=== PATIENT | male | born 1965 | race Caucasian/White ===

== ENCOUNTER 2017-08-22 08:30 | Emergency (ER) | payer BC ==
[2017-08-22 08:51] VITALS: BMI 32.5
[2017-08-22 09:10] LABS: BASOPHILS # (AUTO) 0.1 X10^3/uL (0.0-0.1); BASOPHILS % (AUTO) 0.9 % (0.2-1.0); EOSINOPHILS # (AUTO) 0.1 x10^3/uL (0.0-0.2); EOSINOPHILS % (AUTO) 1.6 % (0.9-2.9); HEMATOCRIT 45.3 % (42.0-54.0); HEMOGLOBIN 14.6 g/dL (13.5-18.0); LYMPHOCYTES # (AUTO) 1.3 X10^3/uL (1.3-2.9); LYMPHOCYTES % (AUTO) 17.6 % (21.0-51.0); MEAN CORPUSCULAR HEMOGLOBIN 21.8 pg (27.0-34.0); MEAN CORPUSCULAR HGB CONC 32.2 g/dL (33.0-35.0); MEAN CORPUSCULAR VOLUME 67.7 fL (80.0-100.0); MEAN PLATELET VOLUME 9.3 fL (7.4-11.0); MONOCYTES # (AUTO) 0.7 x10^3/uL (0.3-0.8); MONOCYTES % (AUTO) 9.9 % (0.0-13.0); NEUTROPHILS # (AUTO) 5.2 x10^3/uL (2.2-4.8); PLATELET COUNT 80 X10^3/uL (150.0-450.0); RED CELL DISTRIBUTION WIDTH 19.6 % (11.6-16.5); WHITE BLOOD COUNT 7.4 X10^3/uL (3.6-10.0)
--- NOTE | 2017-08-22 09:11 | DR.AMS ---
HPI - Time Seen Time seen: 08:45 (seen on arrival to ER) - PCP Primary Care Physician: lilia vance - HPI Comment HPI Comment: spouse notes pt 'takes lots of sudafed and mucinex' - Complaint Cheif Complaint Doctors Comments: Pt 'clutched his chest, started gurgling, eyes rolled back in head'. Brief syncopal episode. No cxp now, 'feels tired' Chief Complaint:: HE FELL BACK IN THE CHAIR AND GRABBED HIS CHEST AND WAS GURGLING Self Treatment fo Chief Complaint: PT ALSO HAS BEEN COUGHING PRODUCTIVE CLEAR AND WHITE - Reviewed Nurses Notes Reviewed: Yes - Source History Provided: Patient, Family Member - Mode of Arrival Mode of Arrival: Wheelchair - Timing Onset of Chief Complaint: 08/22/17 Came On: Suddenly Symptoms: Improving Symptom Onset: Known - Quality Quality: Decreased Alertness - Severity Severity: Moderate - Associated Signs and Symptoms Associated Signs and Symptoms: None, Chest Pain, Other ('feels tired', denies cxp, SOB at present. Pt describes himself as borderline diabetic) PMH - PMH Past Medical History: No ('borderline diabetic') Past Surgical History: Yes (nl cardiac cath 2 yrs ago) Past Surgical History Comment: HEART CATH 2 YRS AGO THAT WAS CLEAR - Family History History of Family Medical Conditions: Yes Family Medical History: Cancer Family Medical History Comment: AFIB - Social History Does patient currently use any type of tobacco product: Yes Type of Tobacco Use: Cigarettes Alcohol Use: Occasionally Do you use any recreational Drugs:: No Lives With: Spouse Lives Where: Home - infectious screening In the last 2 months have you had wt loss of >10#?: NO Have you had fever, night sweats or hemotysis?: No Have you traveled outside the country in the last 6 months?: No Isolation: Standard ROS - Review of Systems Constitutional: Other (fees tired) Eyes: No Symptoms Reported ENTM: No Symptoms Reported Respiratoy: Non-Productive Cough Cardiovascular: Other (cxp earlier but gone now) Gastrointestinal/Abdominal: No Symptoms Reported Genitourinary: No Symptoms Reported Neurological: Other (pt with syncope vs near-syncope at home just [employer]. No incontinence. AAOx3 on arrival here) Musculoskeletal: No Symptoms Reported Integumentary: No Symptoms Reported Psychiatric: No Symptoms Reported All Other Systems: Reviewed and Negative PE - Vitals Vital Signs: Pulse Pulse Resp BP BP Pulse Ox 08/22/17 11:03 78 14 125/79 95 08/22/17 10:25 82 21 128/73 100 08/22/17 08:42 77 14 144/68 98 - General Limitations: No Limitations General Appearance: Alert, In No Apparent Distress - Head Head Exam: Normal Inspection, Atraumatic, Normocephalic - Eyes Eye exam: Normal Appearance, PERRL, EOMI. negative: Nystagmus, Miosis, Mydrasis Pupils: Regular, Round: Bilateral, Reactive: Bilateral - ENT ENT Exam: Normal Exam Nose Exam: Normal Nose Exam Mouth Exam: Normal Inspection Throat Exam: Normal Inspection - Neck Neck Exam: Normal Inspection - Chest Chest Inspection: Normal Inspection - Respiratory Respiratory Exam: Normal Lung Sounds Bilat Respiratory Exam: Bilateral Clear to Auscultation - Cardiovascular Cardiovascular Exam: Regular Rate, Normal Rhythm - Abdominal Exam Abdominal Exam: Normal Inspection, Normal Bowel Sounds, Soft - Extremities Extremities Exam: Normal Inspection - Back Back Exam: Normal Inspection, Full ROM - Neurological Neurological Exam: Alert, Oriented X3, Normal Gait, Reflexes Normal Patient Oriented To: Person, Place, Time Speech: Fluid Speech. negative: Receptive Aphasia, Expressive Aphasia Cranial Nerve Exam: EOM Function (II, III, IV, ): Normal, Facial Sensation (V) : Normal, Facial Palsy (VII): Normal, Tongue Deviation: Normal Cerebellar Function: Finger to Nose: Normal Cerebellar Function: Normal Gait Motor Strength - LUE: 5/5 Motor Strength - RUE: 5/5 Motor Strength - LLE: 5/5 Motor Strength - RLE: 5/5 - Psychological Psychiatric Exam: Normal Affect, Normal Mood - Skin Skin Exam: Warm, Dry ROR - Labs Reviewed Laboratory Results Reviewed?: Yes Result Diagrams: 08/22/17 08:46 08/22/17 08:46 Laboratory: WBC 7.4 X10^3/uL (3.6-10.0) 08/22/17 08:46 RBC 6.70 X10^6/uL (4.7-6.0) H 08/22/17 08:46 Hgb 14.6 g/dL (13.5-18.0) 08/22/17 08:46 Hct 45.3 % (42.0-54.0) 08/22/17 08:46 MCV 67.7 fL (80.0-100.0) L 08/22/17 08:46 MCH 21.8 pg (27.0-34.0) L 08/22/17 08:46 MCHC 32.2 g/dL (33.0-35.0) L 08/22/17 08:46 RDW 19.6 % (11.6-16.5) H 08/22/17 08:46 Plt Count 80 X10^3/uL (150.0-450.0) L 08/22/17 08:46 Plt Count Comment Decreased (ADEQUATE) 08/22/17 08:46 MPV 9.3 fL (7.4-11.0) 08/22/17 08:46 Neut % (Auto) 70.0 % (42.0-75.0) 08/22/17 08:46 Lymph % (Auto) 17.6 % (21.0-51.0) L 08/22/17 08:46 Riley % (Auto) 9.9 % (0.0-13.0) 08/22/17 08:46 Eos % (Auto) 1.6 % (0.9-2.9) 08/22/17 08:46 Baso % (Auto) 0.9 % (0.2-1.0) 08/22/17 08:46 Neut # (Auto) 5.2 x10^3/uL (2.2-4.8) H 08/22/17 08:46 Lymph # (Auto) 1.3 X10^3/uL (1.3-2.9) 08/22/17 08:46 Riley # (Auto) 0.7 x10^3/uL (0.3-0.8) 08/22/17 08:46 Eos # (Auto) 0.1 x10^3/uL (0.0-0.2) 08/22/17 08:46 Baso # (Auto) 0.1 X10^3/uL (0.0-0.1) 08/22/17 08:46 Absolute Nucleated RBC 0.2 /100WBC 08/22/17 08:46 Plt Morphology Comment Normal (NORMAL) 08/22/17 08:46 RBC Morphology Abnormal (NORMAL) 08/22/17 08:46 Hypochromasia Slight A 08/22/17 08:46 Anisocytosis 1+ A 08/22/17 08:46 Microcytosis 2+ A 08/22/17 08:46 INR Target Range - 08/22/17 08:46 INR 0.98 (0.8-1.3) 08/22/17 08:46 APTT 33.2 SECONDS (22.9-36.5) 08/22/17 08:46 PTT Comment - 08/22/17 08:46 Sodium 137 mmol/L (136-145) 08/22/17 08:46 Corrected Sodium 139 mmol/L (136-145) 08/22/17 08:46 Potassium 3.8 mmol/L (3.5-5.1) 08/22/17 08:46 Chloride 103 mmol/L (98-107) 08/22/17 08:46 Carbon Dioxide 22.4 mmol/L (21-32) 08/22/17 08:46 BUN 22 mg/dL (7-18) H 08/22/17 08:46 Creatinine 1.36 mg/dL (0.70-1.30) H 08/22/17 08:46 Est GFR (MDRD) Af Amer > 60 (>60) 08/22/17 08:46 Est GFR (MDRD) Non-Af 58 (>60) L 08/22/17 08:46 Glucose 166 mg/dL (65-99) H 08/22/17 08:46 Calcium 8.8 mg/dL (8.5-10.1) 08/22/17 08:46 Corrected Calcium TNP 08/22/17 08:46 Magnesium 1.6 mg/dL (1.7-2.9) L 08/22/17 08:46 Total Bilirubin 0.70 mg/dL (0.2-1.0) 08/22/17 08:46 AST 21 Units/L (15-37) 08/22/17 08:46 ALT 44 Units/L (12-78) 08/22/17 08:46 Alkaline Phosphatase 126 Units/L (46-116) H 08/22/17 08:46 Creatine Kinase 425 Units/L (39-308) H 08/22/17 08:46 CK-MB (CK-2) 1.4 ng/mL (0-4.0) 08/22/17 08:46 CK/CKMB % Calc 0.3 % (<4) 08/22/17 08:46 Troponin I 0.03 ng/mL (0-1.5) 08/22/17 08:46 Total Protein 7.8 g/dL (6.4-8.2) 08/22/17 08:46 Albumin 4.0 g/dL (3.4-5.0) 08/22/17 08:46 Globulin 3.8 g/dL (2.5-4.5) 08/22/17 08:46 Albumin/Globulin Ratio 1.1 Ratio (1.1-2.1) 08/22/17 08:46 Specimen Type Random urine 08/22/17 10:23 Urine Color Yellow (YELLOW) 08/22/17 10:23 Urine Appearance Clear (CLEAR) 08/22/17 10:23 Urine pH 6.0 (5.0 - 8.0) 08/22/17 10:23 Ur Specific [place] 1.020 (1.000-1.030) 08/22/17 10:23 Urine Protein 3+ (NEGATIVE) 08/22/17 10:23 Urine Glucose (UA) Negative (NEGATIVE) 08/22/17 10:23 Urine Ketones Negative (NEGATIVE) 08/22/17 10:23 Urine Occult Blood 1+ (NEGATIVE) 08/22/17 10:23 Urine Nitrite Negative (NEGATIVE) 08/22/17 10:23 Urine Bilirubin Negative (NEGATIVE) 08/22/17 10:23 Urine Urobilinogen 1+ (NORMAL) 08/22/17 10:23 Ur Leukocyte Esterase 1+ (NEGATIVE) 08/22/17 10:23 Urine RBC 0-2 /HPF (NONE SEEN) 08/22/17 10:23 Urine WBC 3-5 /HPF (NONE SEEN) 08/22/17 10:23 Ur Squamous Epith Cells Few /HPF (NEGATIVE) 08/22/17 10:23 Amorphous Sediment Trace /HPF (NEGATIVE) 08/22/17 10:23 Urine Bacteria Negative /HPF (NEGATIVE) 08/22/17 10:23 Hyaline Casts Rare /LPF (NEGATIVE) 08/22/17 10:23 Urine Mucus Moderate /HPF (NEGATIVE) 08/22/17 10:23 Ur Culture Indicated? No/not indicated 08/22/17 10:23 Urine Opiates Screen Negative (NEG=<300) 08/22/17 10:23 Urine Methadone Screen Negative (NEG=<300) 08/22/17 10:23 Ur Barbiturates Screen Negative (NEG=<200) 08/22/17 10:23 Ur Phencyclidine Scrn Negative (NEG=<25) 08/22/17 10:23 Ur Amphetamines Screen Negative (NEG=<1000) 08/22/17 10:23 U Benzodiazepines Scrn Negative (NEG=<200) 08/22/17 10:23 Urine Cocaine Screen Negative (NEG=<300) 08/22/17 10:23 U Marijuana (THC) Screen Negative (NEG=<50) 08/22/17 10:23 - XRAY XRAY Interpreted by: Radiologist XRAY Findings: CT head nonacute, CXR neg acute - EKG Compared to prior EKG Dated: 08/22/17 (nonacute) - Diagnosis Discharge Problem: Syncopal episodes Narrative Support Text: pt feelsd better, offered admission for monitoring but he refuses, wants to go home. Will return PRN. Feels back to normal - Discharge Plan Disposition: 01 HOME, SELF-CARE Condition: Stable - Follow ups/Referrals Follow ups/Referrals: Jose Angel Vance [Primary Care Provider] - 3 days - Instructions Instructions: Syncope, [id number] Additional Notes - Additional Notes Additional Notes: pt offered admit but he wants to go home. Has good family support. Will return PRN. Pt asymptomatic on d/c, feels back to normal.
[2017-08-22 09:28] LABS: ALANINE AMINOTRANSFERASE 44 Units/L (12-78); ALKALINE PHOSPHATASE 126 Units/L (46-116); ASPARTATE AMINO TRANSFERASE 21 Units/L (15-37); BLOOD UREA NITROGEN 22 mg/dL (7-18); CALCIUM 8.8 mg/dL (8.5-10.1); CARBON DIOXIDE 22.4 mmol/L (21-32); CHLORIDE 103 mmol/L (98-107); CKMB % 0.3 % (<4); COR NA(FOR HYPERGLY) 139 mmol/L (136-145); CREATINE KINASE 425 Units/L (39-308); CREATINE KINASE MB 1.4 ng/mL (0-4.0); CREATININE 1.36 mg/dL (0.70-1.30); MAGNESIUM 1.6 mg/dL (1.7-2.9); SODIUM 137 mmol/L (136-145); TOTAL PROTEIN 7.8 g/dL (6.4-8.2); TROPONIN I 0.03 ng/mL (0-1.5); eGFR BLACK RACES > 60 (>60); eGFR NON BLACK RACES 58 (>60)
--- NOTE | 2017-08-22 09:29 | RAD ---
STUDY: CHEST, ONE VIEW History: Chest pain. Comparison: None. Findings: The trachea is midline. There is some prominence of the central pulmonary vasculature, without eviden ce of significant interstitial edema. There is mild cardiomegaly. The mediastinal and osseous structu res are unremarkable. IMPRESSION: 1. Mild cardiomegaly with central pulmonary vascular congestion. No significant interstitial edema a t this time. Reported By:
--- NOTE | 2017-08-22 09:29 | CT ---
HISTORY: Dizziness, chest pain Study: CT head without contrast Comparison: None Technique: Axial noncontrast images with coronal and sagittal reformats. Dose reduction procedures we re used with mA/kv adjusted for body size. Findings: The ventricles are normal in size shape and position. There are no areas of abnormal attenuation to s uggest recent or remote CVA, hemorrhage, mass lesion, or extra-axial fluid collection. There is a sma ll right maxillary sinus retention cyst present. The remainder of the visualized paranasal sinuses ar e clear. The calvarium is intact. IMPRESSION: No significant intracranial abnormality identified Reported By:
[2017-08-22 09:54] LABS: PLATELET MORPHOLOGY COMMENT NORMAL (NORMAL)
[2017-08-22 09:55] LABS: ANISOCYTOSIS 1+; HYPOCHROMASIA SLIGHT; MICROCYTOSIS 2+
[2017-08-22 10:32] LABS: BILIRUBIN,URINE NEGATIVE (NEGATIVE); BLOOD/HEMOGLOBIN,URINE 1+ (NEGATIVE); GLUCOSE, URINE NEGATIVE (NEGATIVE); KETONES,URINE NEGATIVE (NEGATIVE); LEUKOCYTE ESTERASE ,URINE 1+ (NEGATIVE); NITRITES,URINE NEGATIVE (NEGATIVE); PROTEIN,URINE 3+ (NEGATIVE); UROBILINOGEN,URINE 1+ (NORMAL)
[2017-08-22 10:42] LABS: APPEARANCE,URINE CLEAR (CLEAR); COLOR,URINE YELLOW (YELLOW)
[2017-08-22 10:52] LABS: AMORPHOUS SEDIMENT,UR TRACE /HPF (NEGATIVE); BACTERIA,URINE NEGATIVE /HPF (NEGATIVE); RBC,URINE 0-2 /HPF (NONE SEEN); SQUAMOUS EPITHELIAL CELL,UR FEW /HPF (NEGATIVE)
[2017-08-22 10:53] LABS: HYALINE CASTS, URINE RARE /LPF (NEGATIVE); MUCUS,URINE MODERATE /HPF (NEGATIVE)
[2017-08-22 11:41] VITALS: BP 125/71
== END 2017-08-22 11:40 | disposition home or self-care (01) ==
LOC: ER 08:30
DX: R55 Syncope and collapse (principal); I51.7 Cardiomegaly
CPT/HCPCS: 36415; 70450; 71045; 80053; 80307; 81001; 82550; 82553; 83735; 84484; 85025; 85610; 85730; 93005; 93010; 96365; 99283; A4222; G0434